=== PATIENT | female | born 1945 | race Caucasian/White ===

== ENCOUNTER 2019-01-21 13:30 | Day surgery (SDC) | payer OTHER ==
[2019-01-21] MEDS ORDERED: ceFAZolin 2 GM/DEXTROSE 100 ML IV ONE (14:00)
[2019-01-21] MEDS ORDERED: LIDOCAINE 1% 2 ML INJ ID PRN (14:26)
[2019-01-21] MEDS ORDERED: LR 1,000 ML IV ONE (14:26)
[2019-01-21] MEDS ORDERED: LIDOCAINE 1% 300 MG/30 ML SDV ONE (15:00)
[2019-01-21] MEDS ORDERED: ROPIVACAINE HCL 150 MG/30 ML INJ ONE (15:00)
[2019-01-21] MEDS ORDERED: DEXAMETHASONE 4 MG/ML VIAL ONE (15:00)
[2019-01-21] MEDS ORDERED: BACITRACIN 50,000 UNITS/10 ML SYR IRR ONE (15:01)
[2019-01-21] MEDS ORDERED: PROPOFOL/EMULSION 500 MG/50 ML BOTTLE IV ONE (15:25)
[2019-01-21] MEDS ORDERED: fentaNYL 100 MCG/2 ML INJ ONE (15:28)
[2019-01-21] MEDS ORDERED: BUPIVACAINE 0.5% 30 ML SDV ONE (15:37)
--- NOTE | 2019-01-21 15:53 | PDANEPAE ---
ANE History of Present Illness right foot 2nd hammertoe repair ANE Past Medical History - Cardiovascular History Hx Hypertension: No Hx Arrhythmias: No Hx Chest Pain: No Hx Coronary Artery / Peripheral Vascular Disease: No Hx CHF / Valvular Disease: No Hx Palpitations: Yes Cardiovascular History Comment: OCCAS PALPITATIONS - ATENOLOL - Pulmonary History Hx COPD: No Hx Asthma/Reactive Airway Disease: No Hx Recent Upper Respiratory Infection: No Hx Oxygen in Use at Home: No Hx Sleep Apnea: No Sleep Apnea Screening Result - Last Documented: Negative - Neurologic History Hx Cerebrovascular Accident: No Hx Seizures: No Hx Dementia: No Neurologic History Comment: migraines. - Endocrine History Hx Diabetes: No Hypothyroid: No Hyperthyroid: No Obesity: no - Renal History Hx Renal Disorders: No - Liver History Hx Hepatic Disorders: No - Neurological & Psychiatric Hx Hx Neurological and Psychiatric Disorders: Yes Neurological / Psychiatric History Comment: Anxiety-med - Cancer History Hx Cancer: No - Congenital Disorder History Hx Congenital Disorders: No - GI History Hx Gastrointestinal Disorders: Yes Gastrointestinal History Comment: Chronic heartburn-med. - Other Health History Other Health History: Arthritis in hands. - Chronic Pain History Chronic Pain: No - Surgical History Prior Surgeries: L rotator cuff. Total hyst. Bilateral carpel tunnel. R foot. ANE Review of Systems Review of Systems: - Exercise capacity METS (RN): 4 METS ANE Patient History - Allergies Allergies/Adverse Reactions: atorvastatin calcium [From Lipitor] Allergy (Intermediate, Verified 10/29/12 10: 21) Other-Enter Comments - Home Medications Home medications: home medication list seen and reviewed Home Medications: Aspirin 01/20/19 [Last Taken Unknown] Atenolol 01/20/19 [Last Taken Unknown] Escitalopram Oxalate 01/20/19 [Last Taken Unknown] Herbals/Supplements -Info Only 01/20/19 [Last Taken Unknown] Pepcid 01/20/19 [Last Taken Unknown] Pravastatin Sodium 01/20/19 [Last Taken Unknown] Zolpidem Tartrate 01/20/19 [Last Taken Unknown] - NPO status NPO Since - Liquids (Date): 01/21/19 NPO Since - Liquids (Time): 10:00 NPO Since - Solids (Date): 01/20/19 NPO Since - Solids (Time): 21:00 - Anes Hx Anes Hx: no prior problems - Smoking Hx Smoking Status: Never smoked - Family Anes Hx Family Hx Anesthesia Complications: none ANE Labs/Vital Signs - Vital Signs Blood Pressure: 117/66 Heart Rate: 63 Respiratory Rate: 19 O2 Sat (%): 94 Height: 154.94 cm Weight: 76.204 kg ANE Physical Exam - Airway Neck exam: FROM Mallampati Score: Class 2 Mouth exam: normal dental/mouth exam - Pulmonary Pulmonary: no respiratory distress - Cardiovascular Cardiovascular: regular rate and rhythym - ASA Status ASA Status: II ANE Anesthesia Plan Anesthesia Plan: GA with mask
--- NOTE | 2019-01-21 15:58 | PDHPUP ---
History & Physical Update H&P update statement: This history and physical update is based on an assessment of the patient which was completed after admission or registration (within 24 hours), but prior to the surgery/procedure. H&P update: H&P reviewed & patient examined (no changes in health), no change in patient's condition since H&P completed
[2019-01-21] MEDS ORDERED: ACETAMINOPHEN 500 MG TAB PO PRN (16:32)
[2019-01-21] MEDS ORDERED: HYDROCODONE/APAP 5/325 TAB PO PRN (16:32)
[2019-01-21] MEDS ORDERED: ONDANSETRON 4 MG/2 ML VIAL IVP PRN (16:32)
[2019-01-21] MEDS ORDERED: NALOXONE HCL 0.4 MG/ML INJ IVP PRN (16:32)
[2019-01-21] MEDS ORDERED: fentaNYL 100 MCG/2 ML INJ IVP PRN (16:32)
[2019-01-21] MEDS ORDERED: oxyCODONE IR 5 MG TAB PO PRN (16:32)
[2019-01-21] MEDS ORDERED: LR 500 ML IV PRN (16:32)
[2019-01-21] MEDS ORDERED: HYDROmorphONE/DILAUDID 1 MG/ML INJ IVP PRN (16:32)
--- NOTE | 2019-01-21 16:32 | POSTANESTH ---
Post Anesthetic Evaluation Cardiovascular Status: Normal, Stable Respiratory Status: Normal, Stable Level of Consciousness/Mental Status: Can Participate in Eval, Alert and Oriented Pain Control: Adequate, Prn Tx Ordered Nausea/Vomiting Control: Adequate, Prn Tx Ordered Complications Possibly Related to Anesthesia: None Noted
--- NOTE | 2019-01-21 17:37 | POSTOPPROG ---
Post Op Note Date of Operation: 01/21/19 Surgeon: Lety Walton Anesthesiologist: Dani Hart Anesthesia: IV Sedation, Local (Specify) Pre-op Diagnosis: painful internal plate and screws, hammertoe 2nd right foot Post-op Diagnosis: same Indication: pain Procedure: arthrodesis DIPJ 2nd right, removal of plate and screws Findings: fused first MPJ Inf/Abcess present in the surg proc area at time of surgery?: No EBL: Minimal Complications: none Bowel Protocol: No Clean Closure Performed: No Specimen(s): none
--- NOTE | 2019-01-21 19:04 | GOP ---
[f rep st] OPERATIVE REPORT DATE OF OPERATION: SURGEON: Lety Walton DPM ANESTHESIA: IV sedation with local, light general. ANESTHESIOLOGIST: Dani Vargas MD. PREOPERATIVE DIAGNOSIS: 1. Painful internal plate and screws, right foot. 2. Painful 2nd hammertoe at the level of the distal interphalangeal joint, right foot. POSTOPERATIVE DIAGNOSIS: 1. Painful internal plate and screws, right foot. 2. Painful 2nd hammertoe at the level of the distal interphalangeal joint, right foot. PROCEDURE PERFORMED: Removal of plate and screws from the 1st ray, right foot. Arthrodesis of the d istal interphalangeal joint, 2nd digit, right foot. FINDINGS: INDICATIONS: The patient presented to the hospital approximately an hour and a half to 2 hours prior to foot surgery after being n.p.o. past midnight. Patient's preoperative history and physical and a ll lab studies reviewed and there were no contraindications to the proposed procedures. DESCRIPTION OF PROCEDURE: The patient was given 2 g of Ancef IV one-half hour prior to foot surgery. Patient was taken to the OR room and placed on the OR table in a supine position where the appropri ate anesthetic agents were administered. This was supplemented with a local block to the right foot utilizing a total of 10 cc of 0.5% ropivacaine with 7 cc of 1% lidocaine plain given in a Abraham block fashion to the base of the 1st metatarsal and 2nd metatarsal and to the posterior tibial nerve as it courses through the tarsal tunnel. The right lower extremity was then prepped and draped in usual as eptic fashion, covered with a sterile stockinette. A sterile pneumatic ankle tourniquet was applied and padded well underneath with Webril. Utilizing elevation overlying Esmarch bandage, the right lexx t was exsanguinated and the tourniquet was inflated to a pressure of 220 mmHg. The foot was then low ered to the orthopedic table. Attention was then directed to the dorsal medial aspect of the 1st met atarsal phalangeal joint region where an approximate 4-5 cm linear longitudinal incision was made. I ncision was made medial to extensor hallucis longus tendon overlying the internal palpated plate. In cision was deepened through the subcutaneous tissues to the level of the capsule and periosteal tissu es, taking care to preserve the neurovascular structures. Any bleeders were clamped and cauterized a s needed. A linear capsular and periosteal incision was made in the same plane as the skin incision and the periosteal and capsular tissues were reflected off the plate exposing the plate and all the s crew heads. The screw head 1st crossing the fusion site in a proximal to distal direction was excise d and placed on the back table. All the screws were removed from the plate and then the plate was re moved and placed on the back table without complications. The surgical site was copiously irrigated with a sterile saline bacitracin solution. The periosteal and capsular tissues were reapproximated w ith 3-0 Vicryl. The subcutaneous tissues were reapproximated with 4-0 Monocryl. The skin was reappr oximated with 4-0 Prolene utilizing interrupted horizontal mattress sutures. Attention was then dire cted to the dorsal aspect of the distal interphalangeal joint of the 2nd digit. An approximate 1.5 c m linear longitudinal incision was made centered over the distal interphalangeal joint. The incision was deepened through the subcutaneous tissues to the level of the extensor tendon taking care to pre serve the neurovascular structures. The extensor tendon was incised transversely and reflected off t he head of the middle phalanx and base of the distal phalanx. The head of the middle phalanx was the n resected and placed on the back table. The articular surface of the base of the distal phalanx was resected and placed on the back table. The surgical site was copiously irrigated with a sterile surinder ine bacitracin solution. A airline pilot flight instructor hole was created through the center aspect of the distal end of the middle phalanx and the K-wire was advanced through the central aspect of the base of the distal phal anx as it exited the distal tip of the 2nd digit. The middle phalanx was then held flush against the distal phalanx and the K-wire was advanced proximally into the middle phalanx and proximal phalanx. A stab incision was made to the tip of the 2nd digit and utilizing the standard system for [place], a headless 2.0 screw measuring 26 mm in length was placed over the guidewire. Alignment was checked with the C-arm and the fusion site was flush. The surgical site was copiously irrigated with sterile saline/bacitracin treatment solution. The K-wire was removed and the tourniquet was released. Ther e was immediate capillary refill to all the digits and hemostasis. The extensor tendon was reapproxi mated with a single 3-0 Vicryl suture. The skin was reapproximated with 4-0 Prolene using interrupte d horizontal mattress sutures. A mildly compressive dry sterile gauze dressing was applied including Xeroform, 4 x 4 gauze, Kamran, and an Jefry wrap. The patient tolerated the procedure and anesthesia well and was transferred to the recovery room with vital signs stable and vascular status intact to the right lower extremity. In the recovery room, t phillip patient received postoperative oral and written home care instructions. The patient was dispensed a Cryo Cuff and instructed on its usage. A prescription had been given for Percocet to take postope ratively as prescribed. The patient is permitted to bear weight on the right foot, however, is to we ar the Darco shoe at all times when weightbearing. The procedure went well without complications. S phillip is scheduled for her 1st postoperative visit in 3 days but is to call the office earlier if any qu estions or problems should arise. /[id number]/MODL
[2019-01-21 19:54] VITALS: BP 135/84
== END 2019-01-21 19:30 | disposition home or self-care (01) ==
LOC: FSGY 13:30
PROVIDERS: ATTEND Podiatrist
DX: T84.84XA Pain due to internal orthopedic prosthetic devices, implants and grafts, initial encounter (principal); M20.41 Other hammer toe(s) (acquired), right foot; F41.9 Anxiety disorder, unspecified; K21.9 Gastro-esophageal reflux disease without esophagitis; E78.5 Hyperlipidemia, unspecified; G47.00 Insomnia, unspecified; Z82.49 Family history of ischemic heart disease and other diseases of the circulatory system
CPT/HCPCS: C1713; J0690; J1100; J2704; J2795; J3010